=== PATIENT | male | born 1950 | race Caucasian/White ===

== ENCOUNTER → 2017-05-02 | Outpatient (CLI) | payer MEDICARE, BC ==
--- NOTE | ~2017-05-02 | PUL ---
PATIENT'S NAME: KENNETH BACA [facility] AGE: 67 Y [address] 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 FEV1 was 2.91 liters which is 92% of predicted and normal and FEV1/FVC was 80% and normal. The flow volume curve did not reveal any significant airflow limitation. After bronchodilator administration FVC increased to 3.75 liters which is a 3% increase and FEV1 increased to 3 liters which is a 3% increase as well. FEV1/FVC was 80%. PHYSICIAN INTERPRETATION: The patient has no airflow limitation and no significant bronchodilator response. MD PEYTON YATES/candelaria /[id number] dtt: 05/07/17 [id number] ZBIGNIEW RADU F dtd: 05/04/17 1441
== END | disposition disaster alternative care site (69) ==
LOC: GRTH 08:38
DX: J84.9 Interstitial pulmonary disease, unspecified (principal)